=== PATIENT | male | born 1975 | race Caucasian/White ===

== ENCOUNTER 2021-02-08 11:01 | Emergency (ER) | payer BC ==
[~2021-02-08] VITALS: Ht 180.3 cm; Wt 100.4 kg
[2021-02-08] MEDS ORDERED: NOVOINJ SC (11:10)
[2021-02-08] MEDS ORDERED: INSUDET SC (11:10)
[2021-02-08] MEDS ORDERED: ROSU20TA5 PO (11:10)
[2021-02-08] MEDS ORDERED: LISI20TA33 PO (11:10)
[2021-02-08] MEDS ORDERED: PROPARACAINE 0.5% OPHTH SOL 15ML OD ONE (11:45)
[2021-02-08] MEDS ORDERED: FLUORESCEIN OPHTH 1 MG STRIP OD ONE (11:45)
[2021-02-08 13:29] VITALS: BP 140/82
== END 2021-02-08 13:37 | disposition home or self-care (01) ==
LOC: M ED 11:01
DX: H53.8 Other visual disturbances (principal); E11.9 Type 2 diabetes mellitus without complications; I10 Essential (primary) hypertension; E78.5 Hyperlipidemia, unspecified; Z79.4 Long term (current) use of insulin; Z79.899 Other long term (current) drug therapy